=== PATIENT | male | born 1950 | race Caucasian/White ===

== ENCOUNTER → 2017-01-14 | Outpatient (CLI) | payer OTHER, BC | LOC: BMCIMAGING 10:51 | PROVIDERS: ATTEND Internal Medicine Endocrinology, Diabetes & Metabolism | DX: Z13.820 Encounter for screening for osteoporosis (principal); M81.0 Age-related osteoporosis without current pathological fracture ==

== ENCOUNTER 2017-12-10 11:42 | Inpatient (IN) | payer OTHER, BC ==
[~2017-12-10 11:42] MED LIST: cefOXitin SODIUM 2 GM in NS 100 ML IV ONE
[2017-12-10] MEDS ORDERED: LR 1,000 ML IV ONE (12:29)
[2017-12-10 13:53] LABS: PLATELET COUNT 220 10^3/uL (150-400)
--- NOTE | 2017-12-10 13:58 | PDHPUP ---
History & Physical Update H&P update statement: This history and physical update is based on an assessment of the patient which was completed after admission or registration (within 24 hours), but prior to the surgery/procedure. H&P update: H&P reviewed & patient examined, no change in patient's condition since H&P completed
[2017-12-10] MEDS ORDERED: BUPIVACAINE 0.5% 30 ML SDV ONE (15:11)
[2017-12-10] MEDS ORDERED: HEPARIN 1000 UNIT/1 ML MDV ONE (15:11)
[2017-12-10] MEDS ORDERED: ceFAZolin 1 GM/5 ML SYR ONE (15:13)
[2017-12-10] MEDS ORDERED: MIDAZOLAM 2 MG/2 ML VIAL IVP ONE (16:07)
--- NOTE | 2017-12-10 16:07 | PDANEPAE ---
ANE History of Present Illness Colectomy ANE Past Medical History - Cardiovascular History Hx Hypertension: No Hx Arrhythmias: No Hx Chest Pain: No Hx Coronary Artery / Peripheral Vascular Disease: No Hx CHF / Valvular Disease: No Hx Palpitations: No - Pulmonary History Hx COPD: No Hx Asthma/Reactive Airway Disease: No Hx Recent Upper Respiratory Infection: No Hx Oxygen in Use at Home: No Hx Sleep Apnea: No Sleep Apnea Screening Result - Last Documented: Negative - Neurologic History Hx Cerebrovascular Accident: No Hx Seizures: No Hx Dementia: No - Endocrine History Hx Diabetes: No - Renal History Hx Renal Disorders: No - Liver History Hx Hepatic Disorders: No - Neurological & Psychiatric Hx Hx Neurological and Psychiatric Disorders: No Neurological / Psychiatric History Comment: situational r/t surgery - Cancer History Hx Cancer: Yes Cancer History Comment: 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 states occ heartburn - Other Health History Other Health History: actinic keratosis. wears glasses. ostroporosis - Chronic Pain History Chronic Pain: No - Surgical History Prior Surgeries: bowel resection 1981, 1989 ANE Review of Systems Review of systems is: negative Review of Systems: - Exercise capacity METS (RN): 4 METS ANE Patient History - Allergies Allergies/Adverse Reactions: No Allergies [NKDA] Allergy (Verified 12/09/17 09:38) - Home Medications Home medications: home medication list seen and reviewed Home Medications: Acetaminophen/ASA/Caffeine [Excedrin Tablet (*)] 1 each PO DAILY PRN 12/09/17 [ Last Taken 12/09/17] Alendronate Sodium [Fosamax 70 MG (*)] 70 mg PO GONZALEZ@0700 12/09/17 [Last Taken 12/17] Calcium Carbonate [Oyster Shell Calcium 500 mg (*)] 500 mg PO DAILY 12/09/17 [ Last Taken 1 Week Ago ~12/03/17] Cholecalciferol Vit D3 [Vitamin D3 (*)] 1,000 units PO DAILY 12/09/17 [Last Taken 1 Week Ago ~12/03/17] Cyanocobalamin [Vitamin B12 1000MCG/ML (*)] 1,000 mcg IM Q30D 12/09/17 [Last Taken 11/30/17] Diphenoxylate HCl/Atrop Sulf [Lomotil Tab (*)] 1 tab PO QID PRN 12/09/17 [Last Taken 12/09/17] Multivitamins [Multivitamin (*)] 1 each PO DAILY 12/09/17 [Last Taken 1 Week Ago ~12/03/17] Tetrahydrozoline 0.05% [Visine (*)] 1 drop EACHEYE DAILY PRN 12/09/17 [Last Taken 1 Week Ago ~12/03/17] Triazolam [Halcion 0.25MG (*)] 0.25 mg PO HS PRN 12/09/17 [Last Taken 12/09/17] azaTHIOprine [Imuran 50 mg (*)] 50 mg PO BID 12/09/17 [Last Taken 12/09/17 08:00 ] - NPO status NPO Since - Liquids (Date): 12/10/17 NPO Since - Liquids (Time): 09:00 NPO Since - Solids (Date): 12/09/17 NPO Since - Solids (Time): 20:00 - Anes Hx Anes Hx: no prior problems - Smoking Hx Smoking Status: Current every day smoker - Family Anes Hx Family Anes Hx: none Family Hx Anesthesia Complications: none ANE Labs/Vital Signs - Labs Result Diagrams: 12/10/17 13:20 12/10/17 13:20 - Vital Signs Vital Signs: reviewed preoperatively; see RN documention for details Blood Pressure: 119/73 Heart Rate: 80 Respiratory Rate: 16 O2 Sat (%): 97 Height: 167.64 cm Weight: 50.802 kg ANE Physical Exam - Airway Neck exam: FROM Mallampati Score: Class 1 Mouth exam: normal dental/mouth exam - Pulmonary Pulmonary: no respiratory distress - Cardiovascular Cardiovascular: regular rate and rhythym - ASA Status ASA Status: II ANE Anesthesia Plan Anesthesia Plan: general endotracheal anesthesia
[2017-12-10] MEDS ORDERED: SUGAMMADEX SODIUM 200 MG/2 ML VIAL IVP ONE (16:16)
[2017-12-10] MEDS ORDERED: PROPOFOL 200 MG/20 ML VIAL ONE ×2 (16:16→16:52)
[2017-12-10] MEDS ORDERED: LIDOCAINE 2% 100 MG/5 ML SYR ONE (16:16)
[2017-12-10] MEDS ORDERED: ONDANSETRON 4 MG/2 ML VIAL ONE ×2 (16:16→18:21)
[2017-12-10] MEDS ORDERED: fentaNYL 250 MCG/5 ML INJ ONE (16:16)
[2017-12-10] MEDS ORDERED: DEXAMETHASONE 4 MG/ML VIAL ONE (16:16)
[2017-12-10] MEDS ORDERED: ROCURONIUM 50 MG/5 ML VIAL ONE ×2 (16:16→18:10)
[2017-12-10] MEDS ORDERED: HYDROmorphONE/DILAUDID 2 MG/ML INJ ONE (16:52)
[2017-12-10] MEDS: ONDANSETRON 4 MG/2 ML VIAL IVP PRN (18:20)
[2017-12-10] MEDS ORDERED: OXYCODONE/APAP 5/325 TAB PO PRN (18:27)
[2017-12-10] MEDS ORDERED: NALOXONE HCL 0.4 MG/ML INJ IVP PRN ×2 (18:27→18:50)
[2017-12-10] MEDS ORDERED: TRIAZOLAM 0.25 MG TAB PO PRN (18:28)
[2017-12-10] MEDS ORDERED: TETRAHYDROZOLINE 0.05% 15 ML OPHT.BTL EACHEYE PRN (18:28)
--- NOTE | 2017-12-10 18:31 | POSTOPPROG ---
Post Op Note Date of Operation: 12/10/17 Surgeon: Valdo Smith Automatic Blocker: Nell Marte Anesthesiologist: Bob Cornelius Anesthesia: GET(General Endotracheal) Pre-op Diagnosis: Crohn's stricture Post-op Diagnosis: same Procedure: laparoscopy, laparotomy, ileocolonic resection, adhesiolysis Findings: thick stricture at prior anastomosis, adhesions Inf/Abcess present in the surg proc area at time of surgery?: No EBL: Minimal Complications: none Specimen(s): to pathology
[2017-12-10] MEDS ORDERED: PROMETHAZINE HCL 25 MG/ML INJ ONE (18:49)
[2017-12-10] MEDS ORDERED: ACETAMINOPHEN 500 MG TAB PO PRN (18:50)
[2017-12-10] MEDS ORDERED: ONDANSETRON 4 MG/2 ML VIAL IVP PRN (18:50)
[2017-12-10] MEDS: PROMETHAZINE HCL 25 MG/ML INJ IVP PRN ×4 (18:50→19:44)
[2017-12-10] MEDS ORDERED: fentaNYL 100 MCG/2 ML INJ IVP PRN (18:50)
[2017-12-10] MEDS ORDERED: MEPERIDINE 25 MG/0.5 ML AMP IVP PRN (18:50)
[2017-12-10] MEDS ORDERED: DEXAMETHASONE 4 MG/ML VIAL IVP PRN (18:50)
[2017-12-10] MEDS ORDERED: oxyCODONE IR 5 MG TAB PO PRN (18:50)
[2017-12-10] MEDS ORDERED: HYDROCODONE/APAP 5/325 TAB PO PRN (18:50)
[2017-12-10] MEDS ORDERED: HYDROmorphONE/DILAUDID 1 MG/ML INJ IVP PRN (18:50)
--- NOTE | 2017-12-10 18:52 | POSTANESTH ---
Post Anesthetic Evaluation Cardiovascular Status: Normal, Stable, Similar to Pre-Op Cond Respiratory Status: Normal, Stable, Similar to Pre-op Cond. Level of Consciousness/Mental Status: Can Participate in Eval, Mildly Sleepy, Arousable Pain Control: Adequate, Prn Tx Ordered Nausea/Vomiting Control: Inadeq, Add Tx Reqired Complications Possibly Related to Anesthesia: None Noted
[2017-12-10] MEDS ORDERED: METOCLOPRAMIDE 10 MG/2 ML VIAL ONE (19:51)
[2017-12-10] MEDS ORDERED: METOCLOPRAMIDE 10 MG/2 ML VIAL IVP ONE (20:00)
[2017-12-10] MEDS: HYDROmorphONE/DILAUDID 6 MG/30 ML PCA IV PRN (20:49)
[2017-12-10] MEDS: azaTHIOprine 50 MG TAB PO SCH (20:54)
[2017-12-10] MEDS: D5W 1/2 NS 1,000 ML IV SCH (20:54)
--- NOTE | 2017-12-11 10:10 | SOAPPROG ---
SOAP Progress Note Assessment/Plan: Assessment: 67 y/o M s/p lap assisted ileocolonic resection for stricture POD #1 S: Reports pain, but has improved with use of long term. Feels rumbling in his belly , but not passing gas yet. O: Alert Afebrile RRR No increased WOB Abdomen: soft, nontender, normoactive BS, incisions cdi Plan: Advance to clear liquids today. Hope to transition to oral pain meds in next day or so. 12/11/17 10:08 Objective: Vital Signs Temp Pulse Resp BP Pulse Ox 36.8 C 83 16 106/62 96 12/11/17 09:43 12/11/17 09:43 12/11/17 09:43 12/11/17 09:43 12/11/17 09:43 Laboratory Results 12/11/17 04:55 12/11/17 04:55 12/10/17 12/11/17 12/12/17 05:59 05:59 05:59 Intake Total 3301 Output Total 850 100 Balance 2451 -100 ICD10 Worksheet Patient Problems: Problems Problem Status Onset Stricture of bowel Acute - ICD10 Problem Qualifiers (1) Stricture of bowel
--- NOTE | 2017-12-11 10:29 | PDMN ---
Medical Necessity Medical necessity: [facility] IP only surgery; cpt 62174 Colectomy (Ileocolonic Resection for Stricture)
[2017-12-11] MEDS: azaTHIOprine 50 MG TAB PO SCH ×2 (14:02→22:05)
[2017-12-11] MEDS: D5W 1/2 NS 1,000 ML IV SCH ×2 (14:02→23:08)
[2017-12-11] MEDS: HYDROmorphONE/DILAUDID 6 MG/30 ML PCA IV PRN (14:48)
--- NOTE | 2017-12-11 17:24 | ASMTCMCOM ---
CM Note CM Note Notes: Pt is a 67 y/o man admitted for a revision surgery for partial small bowel obstruction. Pt will most likely d/c independent when medically stable. No therapies ordered at this time. CM available for changes. Plan: Independent Date Signed: 12/11/2017 10:44 AM Electronically Signed By:KHADIJAH North
[2017-12-11] MEDS: CALCIUM CARBONATE 500 MG CHEWABLE TAB PO PRN (22:05)
[2017-12-11] MEDS: ONDANSETRON 4 MG/2 ML VIAL IVP PRN (22:12)
[2017-12-12] MEDS: HYDROmorphONE/DILAUDID 6 MG/30 ML PCA IV PRN (05:00)
[2017-12-12] MEDS: D5W 1/2 NS 1,000 ML IV SCH ×2 (07:14→15:57)
--- NOTE | 2017-12-12 09:25 | SOAPPROG ---
SOAP Progress Note Assessment/Plan: Assessment: 67 y/o M s/p lap assisted ileocolonic resection for stricture POD #2 S: Pain better than yesterday. Feels rumbling in his belly, but not passing gas yet. Had 2 bouts of emesis in last 24 hours. O: Alert Afebrile RRR No increased WOB Abdomen: soft, nontender, normoactive BS, incisions cdi Plan: Continue clears until he passes gas. Get oob as much as possible. 12/12/17 09:24 Objective: Vital Signs Temp Pulse Resp BP Pulse Ox 36.8 C 76 18 129/55 H 95 12/12/17 07:29 12/12/17 07:29 12/12/17 07:29 12/12/17 07:29 12/12/17 07:29 Laboratory Results 12/11/17 04:55 12/11/17 04:55 12/11/17 12/12/17 12/13/17 05:59 05:59 05:59 Intake Total 3301 780 Output Total 850 1350 225 Balance 2451 -570 -225 ICD10 Worksheet Patient Problems: Problems Problem Status Onset Stricture of bowel Acute - ICD10 Problem Qualifiers (1) Stricture of bowel
[2017-12-12] MEDS: azaTHIOprine 50 MG TAB PO SCH ×2 (10:17→20:40)
[2017-12-12] MEDS: ENOXAPARIN 40 MG/0.4 ML SYR SC SCH (10:17)
[2017-12-12] MEDS: ONDANSETRON 4 MG/2 ML VIAL IVP PRN (17:00)
[2017-12-12] MEDS ORDERED: ACETAMINOPHEN/ASA/CAFFEINE 1 EACH TAB PO PRN (17:12)
[2017-12-13] MEDS: D5W 1/2 NS 1,000 ML IV SCH ×3 (00:10→16:28)
[2017-12-13] MEDS: ENOXAPARIN 40 MG/0.4 ML SYR SC SCH (07:21)
[2017-12-13] MEDS: azaTHIOprine 50 MG TAB PO SCH ×2 (07:22→20:24)
[2017-12-13] MEDS: ONDANSETRON 4 MG/2 ML VIAL IVP PRN (07:22)
[2017-12-13] MEDS: CALCIUM CARBONATE 500 MG CHEWABLE TAB PO PRN ×2 (07:33→20:33)
--- NOTE | 2017-12-13 12:54 | SOAPPROG ---
SOAP Progress Note Assessment/Plan: Assessment: 67 y/o M s/p lap assisted ileocolonic resection for stricture POD #3 S: Pain continues to improve. Feels rumbling in his belly, but not passing gas yet. Dry retching this am, but no actual vomiting. O: Alert Afebrile RRR No increased WOB Abdomen: soft, nontender, mildly distended, normoactive BS, incisions cdi Plan: Continue clears until he passes gas. Get oob as much as possible. 2 way abdominal xray. Ducolax suppository. 12/13/17 12:52 Objective: Vital Signs Temp Pulse Resp BP Pulse Ox 36.9 C 85 18 116/71 94 12/13/17 12:00 12/13/17 12:00 12/13/17 12:00 12/13/17 12:00 12/13/17 12:00 Laboratory Results 12/11/17 04:55 12/11/17 04:55 12/12/17 12/13/17 12/14/17 05:59 05:59 05:59 Intake Total 780 4715 Output Total 1350 2675 525 Balance -570 2040 -525 ICD10 Worksheet Patient Problems: Problems Problem Status Onset Stricture of bowel Acute - ICD10 Problem Qualifiers (1) Stricture of bowel
[2017-12-13] MEDS ORDERED: BISACODYL 10 MG SUPP PR ONE (15:59)
[2017-12-13] MEDS ORDERED: SIMETHICONE 80 MG TAB CHEW PO PRN (18:18)
[2017-12-14] MEDS: ENOXAPARIN 40 MG/0.4 ML SYR SC SCH (09:28)
[2017-12-14] MEDS: CALCIUM CARBONATE 500 MG CHEWABLE TAB PO PRN (09:28)
[2017-12-14] MEDS: azaTHIOprine 50 MG TAB PO SCH ×2 (09:28→20:48)
[2017-12-14] MEDS ORDERED: BISACODYL 10 MG SUPP PR ONE (10:10)
--- NOTE | 2017-12-14 10:15 | SOAPPROG ---
SOAP Progress Note Assessment/Plan: Assessment/Plan: 67 y/o M s/p lap assisted ileocolonic resection for stricture, Crohn's. Ileus. +loose BM c dulcolax yesterday evening and last night. Mild nausea. Continue IVF, clears. Repeat dulcolax. AXR in am. Heartburn/reflux. Add pepcid. Long discussion regarding nature of an ileus, importance of bowel rest, ambulating, and also when TPN would be warranted. Dispo: pending resolution of ileus. S: loose stool. mild nausea. c/o heartburn. using tums. O: alert, nad no wob ctab rrr abd softly distended, hyperactive tympanic BS. 12/14/17 10:10 Objective: Vital Signs Temp Pulse Resp BP Pulse Ox 36.9 C 73 16 118/70 97 12/14/17 08:00 12/14/17 08:00 12/14/17 08:00 12/14/17 08:00 12/14/17 08:00 Laboratory Results 12/11/17 04:55 12/11/17 04:55 12/13/17 12/14/17 12/15/17 05:59 05:59 05:59 Intake Total 8257 Output Total 2602 6470 Balance 2040 -1376 ICD10 Worksheet Patient Problems: Problems Problem Status Onset Stricture of bowel Acute
--- NOTE | 2017-12-14 10:16 | ASMTCMCOM ---
CM Note CM Note Notes: Spoke with pt in the room and then with RN and PA. Pt's ileus is resolving but will need 1 -2 more days inpatient for full resolution. Pt to discharge home independently. Pt states he has roommate who can be helpful and PT has also cleared him for independent discharge. D/C Plan: independently Date Signed: 12/14/2017 10:15 AM Electronically Signed By:Yocasta Viramontes
[2017-12-14] MEDS: FAMOTIDINE 20 MG/NACL 50 ML IV SCH ×2 (10:50→20:48)
[2017-12-14] MEDS: D5W 1/2 NS 1,000 ML IV SCH (15:25)
[2017-12-15] MEDS ORDERED: ALENDRONATE SODIUM 70 MG TAB PO SCH (07:00)
[2017-12-15] MEDS: ENOXAPARIN 40 MG/0.4 ML SYR SC SCH (08:20)
[2017-12-15] MEDS: azaTHIOprine 50 MG TAB PO SCH ×2 (08:20→20:19)
[2017-12-15] MEDS: FAMOTIDINE 20 MG/NACL 50 ML IV SCH ×2 (08:20→20:19)
--- NOTE | 2017-12-15 09:51 | SOAPPROG ---
[facility] Progress Note Assessment/Plan: Assessment/Plan: 67 y/o M s/p lap assisted ileocolonic resection for stricture, Crohn's. Ileus. Seems to be improved. +stool and flatus. BS much more normal. Will trial advancing diet. Ok to buff cap IVF if taking PO. Dispo: pending resolution of ileus. Patient motivated to go home. If tolerates diet, could be as early as tomorrow, more likely Saturday. S: belly feels better. doing lots of walking. +stool and gas. no nausea. hungry. O: alert, nad no wob ctab rrr abd softer with more normoactive BS--no longer hyperactive and more normal tone. 12/15/17 09:48 Objective: Vital Signs Temp Pulse Resp BP Pulse Ox 36.7 C 61 16 107/60 98 12/15/17 08:00 12/15/17 08:00 12/15/17 08:00 12/15/17 08:00 12/15/17 08:00 Laboratory Results 12/11/17 04:55 12/11/17 04:55 12/14/17 12/15/17 12/16/17 05:59 05:59 05:59 Intake Total 1300 Output Total 7580 6460 Balance -1375 -763 ICD10 Worksheet Patient Problems: Problems Problem Status Onset Stricture of bowel Acute
--- NOTE | 2017-12-16 08:37 | SOAPPROG ---
SOAP Progress Note Assessment/Plan: Assessment: 67 y/o M s/p lap assisted ileocolonic resection for stricture POD #3 S: Passing gas and BMs. Still having some incisional pain, but has only been using ibuprofen and tylenol. Tolerating regular diet. O: Alert Afebrile RRR No increased WOB Abdomen: soft, nontender, mildly distended, normoactive BS, incisions cdi Plan: Dispo home today. 12/16/17 08:36 Objective: Vital Signs Temp Pulse Resp BP Pulse Ox 36.7 C 66 12 116/67 95 12/15/17 23:49 12/15/17 23:49 12/15/17 23:49 12/15/17 23:49 12/15/17 23:49 Laboratory Results 12/11/17 04:55 12/11/17 04:55 12/15/17 12/16/17 12/17/17 05:59 05:59 05:59 Intake Total 1300 150 Output Total 2050 200 Balance -750 -50 ICD10 Worksheet Patient Problems: Problems Problem Status Onset Stricture of bowel Acute - ICD10 Problem Qualifiers (1) Stricture of bowel
[2017-12-16 09:08] VITALS: BP 107/74
[2017-12-16] MEDS: ENOXAPARIN 40 MG/0.4 ML SYR SC SCH (10:02)
[2017-12-16] MEDS: FAMOTIDINE 20 MG/NACL 50 ML IV SCH (10:02)
[2017-12-16] MEDS: azaTHIOprine 50 MG TAB PO SCH (10:02)
== END 2017-12-16 11:27 | disposition home or self-care (01) | DRG 330 ==
LOC: F3N 12:15 → F3E 20:20
PROVIDERS: ADMIT Surgery; ATTEND Surgery
PROC: 0DTF8ZZ Resection of Right Large Intestine, Via Natural or Artificial Opening Endoscopic (ICD-10-PCS; principal; 2017-12-10 14:15)
DX: K50.10 Crohn's disease of large intestine without complications (principal); K91.89 Other postprocedural complications and disorders of digestive system; Z23 Encounter for immunization; Z85.828 Personal history of other malignant neoplasm of skin; M81.0 Age-related osteoporosis without current pathological fracture; Z72.0 Tobacco use
CPT/HCPCS: 97116-GP; 97161-GP; G0008; G8978-GP-CI; G8980-GP-CI; J0694; J1100; J1170; J1650; J2001; J2250; J2405; J2550; J2704; J2765; J3010; J7500

== ENCOUNTER → 2017-12-25 | Outpatient (CLI) | payer OTHER, BC | LOC: FIMAGING 12:36 | PROVIDERS: ATTEND Physician Assistant | DX: R10.9 Unspecified abdominal pain (principal); R14.0 Abdominal distension (gaseous) ==